=== PATIENT | male | born 1990 | race Caucasian/White ===

== ENCOUNTER 2019-07-18 04:18 | Emergency (ER) | payer MEDICAID ==
[~2019-07-18] VITALS: Ht 185.4 cm; Wt 78.5 kg
[2019-07-18 04:18] VITALS: BP_SYST 173
[2019-07-18] MEDS ORDERED: MORPHINE 2 MG/ML INJ. SYRINGE IM ONE (05:15)
[2019-07-18] MEDS ORDERED: KETOROLAC TROMETHAMINE 60 MG/2 ML VIAL IM ONE (05:15)
[2019-07-18] MEDS ORDERED: LIDOCAINE/EPI 1% 1:100000 20 ML VIAL INJ ONE (05:45)
[2019-07-18] MEDS ORDERED: IBUPROFEN 400 MG TABLET ONE (06:33)
[2019-07-18 08:10] VITALS: BP_SYST 146
[2019-07-18] MEDS ORDERED: BACITRACIN 1 GM OINT TP ONE ×2 (08:15→08:20)
== END 2019-07-18 08:10 | disposition home or self-care (01) ==
LOC: SED 04:18
DX: S01.81XA Laceration without foreign body of other part of head, initial encounter (principal); Z88.1 Allergy status to other antibiotic agents; X99.8XXA Assault by other sharp object, initial encounter; Y93.89 Activity, other specified; Y92.89 Other specified places as the place of occurrence of the external cause; Y99.8 Other external cause status
CPT/HCPCS: 12014; 70450; 70486; 96372; 99285; J1885; J2270

== ENCOUNTER 2019-07-20 16:30 | Emergency (ER) | payer MEDICAID ==
[~2019-07-20] VITALS: Ht 167.6 cm; Wt 65.8 kg
--- NOTE | 2019-07-20 16:35 | NUR ---
Patient to ER bed 07 to gown for evaluation. Side rails up.
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
[2019-07-20 16:39] VITALS: BP_SYST 148
--- NOTE | 2019-07-20 16:44 | NUR ---
ER Dr. Santo at bedside examining patient.
[2019-07-20 16:54] VITALS: BP_SYST 148
--- NOTE | 2019-07-20 16:54 | NUR ---
Patient given written and verbal discharge instructions and verbalizes understanding. ER MD discussed with patient the results and treatment provided. Patient in stable condition. ID arm band removed. Rx of Cowley given. Patient educated on pain management and to follow up with PMD. Pain Scale 0/10. Opportunity for questions provided and answered. Medication side effect fact sheet provided.
== END 2019-07-20 16:54 | disposition home or self-care (01) ==
LOC: SED 16:30
DX: S01.81XD Laceration without foreign body of other part of head, subsequent encounter (principal); Z88.1 Allergy status to other antibiotic agents; X58.XXXD Exposure to other specified factors, subsequent encounter
CPT/HCPCS: 99283

== ENCOUNTER 2019-07-23 14:50 | Emergency (ER) | payer MEDICAID ==
[~2019-07-23] VITALS: Ht 185.4 cm; Wt 78.9 kg
[2019-07-23 15:44] VITALS: BP_SYST 139
== END 2019-07-23 16:30 | disposition home or self-care (01) ==
LOC: SED 14:50
DX: Z48.02 Encounter for removal of sutures (principal); Z88.1 Allergy status to other antibiotic agents
CPT/HCPCS: 99281

== ENCOUNTER 2019-07-26 15:40 | Emergency (ER) | payer MEDICAID ==
[~2019-07-26] VITALS: Ht 185.4 cm; Wt 78.9 kg
[2019-07-26 15:48] VITALS: BP_SYST 147
[2019-07-26 17:22] VITALS: BP_SYST 136
== END 2019-07-26 17:22 | disposition home or self-care (01) ==
LOC: SED 15:40
DX: S01.119D Laceration without foreign body of unspecified eyelid and periocular area, subsequent encounter (principal); Z88.1 Allergy status to other antibiotic agents; X58.XXXD Exposure to other specified factors, subsequent encounter
CPT/HCPCS: 99281